=== PATIENT | male | born 1995 | race Caucasian/White ===

== ENCOUNTER 2021-11-21 19:22 | Outpatient (CLI) | payer OTHER | END 2021-11-21 23:59 | disposition critical access hospital (66) | LOC: EMS 19:22 | DX: S89.92XA Unspecified injury of left lower leg, initial encounter (principal); W01.0XXA Fall on same level from slipping, tripping and stumbling without subsequent striking against object, initial encounter; Y92.000 Kitchen of unspecified non-institutional (private) residence as the place of occurrence of the external cause | CPT/HCPCS: A0425; A0427 ==

== ENCOUNTER 2021-11-21 19:45 | Emergency (ER) | payer OTHER ==
[2021-11-21] MEDS ORDERED: HYDROmorphone 1 MG/ML CARPUJECT IVP STA (19:47)
[2021-11-21] MEDS ORDERED: MIDAZOLAM 2 MG/2 ML VIAL IVP STA (19:59)
[2021-11-21] MEDS ORDERED: MIDAZOLAM 2 MG/2 ML VIAL ONE (20:03)
--- NOTE | 2021-11-21 20:45 | ED Physician Documentation ---
PD HPI LOWER EXT INJURY - Stated complaint Stated Complaint: LEFT LEG/KNEE DISLOCATION - Chief complaint Chief Complaint: Trauma Ext - History obtained from History obtained from: Patient, EMS - History of Present Illness PD HPI LOW EXT INJURY LOCATION: Left, Knee Where injury occurred: Home Pain level max: 10 Pain level now: 10 Worsened by: Moving Associated symptoms: No: Weakness, Numbness, Tingling, Swelling Contributing factors: No: Anticoagulated Recently seen: Not recently seen - Additional information Additional information: Patient is a 26-year-old male who presents to the emergency department with left knee pain after a slip in his kitchen today. Complains of a left patellar dislocation. Brought in by EMS. Fentanyl given en route. Worse with movement, nothing makes it better. Review of Systems Constitutional: denies: Fever, Chills Respiratory: denies: Cough GI: denies: Vomiting, Diarrhea Skin: denies: Rash Musculoskeletal: denies: Neck pain, Back pain Neurologic: denies: Headache PD PAST MEDICAL HISTORY - Past Medical History Past Medical History: No Cardiovascular: None Respiratory: None Neuro: None Endocrine/Autoimmune: None GI: None : None HEENT: None Psych: None Musculoskeletal: None Derm: None - Past Surgical History Past Surgical History: Yes General: Appendectomy - Present Medications Home Medications: Ambulatory Orders Medication Instructions Recorded Confirmed No Known Home Medications 11/21/21 11/21/21 - Allergies Allergies/Adverse Reactions: Allergies Allergy/AdvReac Type Severity Reaction Status Date / Time No Known Drug Allergies Allergy Verified 11/21/21 19:48 - Social History Does the pt smoke?: Yes Smoking Status: Current every day smoker Does the pt drink ETOH?: Yes Does the pt have substance abuse?: No - Immunizations Immunizations are current?: Yes - POLST Patient has POLST: No PD ED PE NORMAL - Vitals Vital signs reviewed: Yes - General General: Alert and oriented X 3, No acute distress - HEENT HEENT: Moist mucous membranes - Neck Neck: Supple, no meningeal sign - Cardiac Cardiac: RRR - Respiratory Respiratory: No respiratory distress, Clear bilaterally - Derm Derm: Warm and dry - Extremities Extremities: Other (Left knee - Laterally displaced patella. No bony tenderness about the knee. Neurovascular intact.) - Neuro Neuro: Alert and oriented X 3 Results - Vitals Vitals: Vital Signs - 24 hr 11/21/21 11/21/21 11/21/21 19:48 19:50 20:12 Temperature 36.5 C 36.3 C L Heart Rate 96 96 88 Respiratory 22 22 13 Rate Blood Pressure 143/99 H 143/99 H 139/95 H O2 Saturation 100 100 100 Oxygen O2 Source Nasal cannula - Rads (name of study) Left knee x-ray Radiology: Final report received, EMP read contemporaneously, See rad report (No acute bony abnormality) Procedures - Reduction Body part reduced: Left, Patella Fracture or dislocation: Dislocation Anesthesia: Dilaudid Reduction aftercare: Xray confirms reduction, Splint applied, Crutches, Patient tolerated well PD MEDICAL DECISION MAKING - ED course Complexity details: reviewed results, re-evaluated patient, considered differential, d/w patient ED course: 26-year-old male with a left patellar dislocation. This is reduced. Tolerated well. No complications. X-ray does not show any acute abnormalities. Placed in a locked articulating knee brace for comfort. Given crutches. He will follow-up with orthopedics for further care. Discussed the case with orthopedics on-call, Dr. Tolentino who recommends splint and follow-up in clinic. Patient counseled regarding signs and symptoms for which I believe and urgent re-evaluation would be necessary. Patient with good understanding of and agreement to plan and is comfortable going home at this time This document was made in part using voice recognition software. While efforts are made to proofread this document, sound alike and grammatical errors may occur. Departure - Departure Disposition: 01 Home, Self Care Clinical Impression: Patellar dislocation Qualifiers: Encounter type: initial encounter Laterality: left Qualified Code(s): S83.005A - Unspecified dislocation of left patella, initial encounter Condition: Good Instructions: ED Dislocation Patella Follow-Up: [facility] [Provider Group] - Within 1 week Comments: Please follow-up with orthopedics for further care. Stay in the articulating knee brace until released by orthopedics. Return if you worsen. You are to be nonweightbearing until seen by orthopedics.
[2021-11-21 21:10] VITALS: BP 122/80
--- NOTE | 2021-11-21 21:14 | XRAY Report ---
PROCEDURE: Knee 4 View LT INDICATIONS: s/p patellar dislocation/relocation TECHNIQUE: were acquired. COMPARISON: None. FINDINGS: Bones: No fractures or dislocations. No suspicious bony lesions. Soft tissues: No joint effusion. No suspicious soft tissue calcifications. There is a linear metall ic density demonstrated superficial to the lateral distal thigh. IMPRESSION: 1. No fracture or dislocation. Reviewed by: Malachi Eaton MD on 11/21/2021 9:13 PM PDT Approved by: Malachi Eaton MD on 11/21/2021 9:13 PM PDT Station ID: [id number]
== END 2021-11-21 21:31 | disposition home or self-care (01) ==
LOC: ED 19:45
DX: S83.005A Unspecified dislocation of left patella, initial encounter (principal); W01.0XXA Fall on same level from slipping, tripping and stumbling without subsequent striking against object, initial encounter; Y92.000 Kitchen of unspecified non-institutional (private) residence as the place of occurrence of the external cause; F17.200 Nicotine dependence, unspecified, uncomplicated
CPT/HCPCS: 27562; 73564; 96374; 99282; 99284; J1170

== ENCOUNTER 2022-06-18 15:02 | Emergency (ER) | payer OTHER ==
--- NOTE | 2022-06-18 16:30 | ED Physician Documentation ---
PD HPI URI - Stated complaint Stated Complaint: FEVER/NAUSEA - Chief complaint Chief Complaint: General - History obtained from History obtained from: Patient - History of Present Illness Timing - onset: How many days ago (3-4) Timing duration: Days (3-4) Timing details: Abrupt onset, Still present Associated symptoms: Fever, Chills, Nasal congestion, Dry cough Contributing factors: Sick contact (her with similar syptoms for 4-5 days and tested positive for COVID at home.) Similar symptoms before: Has not had sx before Recently seen: Not recently seen Review of Systems Constitutional: reports: Fever, Chills, Myalgias, Fatigue Nose: reports: Congestion Throat: reports: Sore throat Respiratory: reports: Cough GI: reports: Nausea. denies: Vomiting, Diarrhea Skin: denies: Rash Neurologic: reports: Headache. denies: Altered mental status PD PAST MEDICAL HISTORY - Past Medical History Cardiovascular: None Respiratory: None Neuro: None Endocrine/Autoimmune: None GI: None : None HEENT: None Psych: None Musculoskeletal: None Derm: None - Past Surgical History Past Surgical History: Yes General: Appendectomy - Present Medications Home Medications: Ambulatory Orders Medication Instructions Recorded Confirmed Albuterol Sulf [Ventolin Hfa 2 - 3 puffs INH QID #1 each 06/18/22 Inhaler] Benzonatate [Tessalon] 100 mg PO TID PRN #20 cap 06/18/22 Omeprazole 40 mg PO DAILY 06/18/22 06/18/22 Ondansetron Odt [Zofran] 4 mg TL Q6H PRN #10 tablet 06/18/22 - Allergies Allergies/Adverse Reactions: Allergies Allergy/AdvReac Type Severity Reaction Status Date / Time No Known Drug Allergies Allergy Verified 06/18/22 15:15 - Social History Does the pt smoke?: Yes Smoking Status: Current every day smoker Does the pt drink ETOH?: Yes Does the pt have substance abuse?: No - Immunizations Immunizations are current?: Yes - POLST Patient has POLST: No PD ED PE NORMAL - Vitals Vital signs reviewed: Yes - General General: Alert and oriented X 3, Well developed/nourished - HEENT HEENT: Moist mucous membranes, Pharynx benign - Neck Neck: Supple, no meningeal sign, No adenopathy - Cardiac Cardiac: RRR, No murmur - Respiratory Respiratory: Clear bilaterally - Abdomen Abdomen: Soft, Non tender - Derm Derm: Normal color, Warm and dry, No rash - Neuro Neuro: Alert and oriented X 3, No motor deficit, Normal speech Results - Vitals Vitals: Oxygen O2 Source Room air PD MEDICAL DECISION MAKING - ED course Complexity details: considered differential ( with COVID and patient with same symptoms. Home test positive. ), d/w patient Departure - Departure Disposition: Home, Self Care Clinical Impression: COVID-19 Upper respiratory infection Qualifiers: URI type: unspecified URI Qualified Code(s): J06.9 - Acute upper respiratory infection, unspecified Condition: Stable Record reviewed to determine appropriate education?: Yes Follow-Up: [facility] [Provider Group] Prescriptions: Benzonatate [Tessalon] 100 mg PO TID PRN #20 cap PRN Reason: Cough Albuterol Sulf [Ventolin Hfa Inhaler] 2 - 3 puffs INH QID #1 each Ondansetron Odt [Zofran] 4 mg TL Q6H PRN #10 tablet PRN Reason: Nausea / Vomiting Comments: Stay well-hydrated. Tylenol every 4-6 hours if needed for pains or fevers. Use benzonatate/Tessalon if needed for cough. Ondansetron if needed for nausea. Use the albuterol inhaler 2 to 3 puffs 4 times daily for the next several days to week to help with chest tightness and breathing. Paxlovid as directed per the package instructions. I would anticipate improvement over the next several days. Off work I presume 5 days but check with your command if they have a particular protocol. I transmitted your prescriptions to [facility] pharmacy in [place]. Forms: Activity restrictions Discharge Date/Time: 06/18/22 18:06
[2022-06-18] MEDS ORDERED: NIRMATRELVIR/RITONAVIR PREPACK PO STA (17:10)
[2022-06-18] MEDS ORDERED: BENZONATATE 100 MG CAPSULE PO STA (17:10)
[2022-06-18] MEDS ORDERED: ONDANSETRON ODT 4 MG TABLET TL STA (17:10)
[2022-06-18 18:06] VITALS: BP 120/72
== END 2022-06-18 18:06 | disposition home or self-care (01) ==
LOC: ED 15:02
DX: U07.1 COVID-19 (principal); F17.200 Nicotine dependence, unspecified, uncomplicated
CPT/HCPCS: 99283; A9270; J3490; Q0162

== ENCOUNTER 2022-10-07 11:10 | Outpatient (CLI) | payer OTHER ==
[2022-10-07 12:17] VITALS: BP 126/70
--- NOTE | 2022-10-07 12:17 | SLEEP CARE CONSULTATION ---
Information from patient questionnaire entered by Shahbaz Zuñiga. I have reviewed and concur with the information entered by Shahbaz Zuñiga. This document represents the service I personally performed and the decisions made by me, Constantine Menjivar MD, [facility]. History of Present Illness Service Date and Time: 10/07/2022 1110 Reason for Visit: New patient Chief Complaint: reports: Snoring, Observed pauses in breathing, Fatigue, Frequent awakenings at night Date of Onset: 1YR Usual bedtime: 2100 Time it takes to fall asleep: 10-15MIN Snores at night: Yes Observed to quit breathing while asleep: Yes Sleeps alone due to snoring: No Number of times waking at night: 2-4 Reasons for waking at night: reports: Choking, Snoring, Gasping for air, Other (COUGHING) Toss, Turn, or Twitch while sleeping: Yes Recalls having dreams: No Usually gets out of bed at: 0550 Feels refreshed in the morning: No Morning headache: Yes (RESOLVES AFTER COFFEE) Sleepy or fatigued during the day: Yes Ever fallen asleep while driving: No Takes day naps: No Dreams during day naps: No Prior sleep studies: No Additional HPI information: I had the pleasure of seeing Mr. Sung and his today regarding the possibility of him having a sleep disorder. As you know, he is a 26-year-old gentleman who complains of loud snore and observed apneas. He said he recently had an endoscopy and the medical staff witnessed him stop breathing while sedated. At home, his also sees him quit breathing and choking. The patient tells me that he normally goes to bed around 9 pm, and it takes him approximately 10 - 15 minutes to fall asleep. His can still sleep in the same bed. He can recall waking up on the average of 2 - 4 times during the night. Most of the time he wakes up because of his own snoring, choking, and having to gasp for air. There is a lot of tossing and turning in his sleep. No somniloquy (sleep talking) or somnambulism (sleep walking). Generally, there is no recollection of dreams. In the morning he usually gets up out of the bed around 5:50 a.m. not feeling refreshed nor rested. He usually does have a morning headache that goes away after a cup of coffee. During the day he complains of feeling sleepy and fatigued. His score on [place] Sleepiness Scale is 12 out of 24. He never has fallen asleep while driving nor has had any accident due to sleepiness. He usually does not take naps during the day. Upon falling asleep during the day he denies having vivid dreams. He has never had sleep paralysis, experienced cataplexy or symptoms of restless leg syndrome. He denies having impaired concentration during the day. - Parasomnia Symptoms Ever been unable to move upon waking from sleep: No Walks in sleep: No Talks in sleep: No Ever acted out dreams in sleep: No Ever felt weak in the knees when startled or emotional: Yes Bothered by creepy, crawly, restless sensations in legs: No Problems with memory or concentration: No Subjective Initial [place] Sleepiness Scale score: 10 (10/05/22) Past Medical History Past Medical History: reports: Anxiety, Depression, GERD Social History The patient's occupation is a AM. Patient is and lives in [place]. Years of smokin Quit date: 08/2022 Alcohol use: Yes Alcohol amount and frequency: 1 DRINK 2 X WEEK Caffeine use: Yes Caffeine amount and frequency: 1 CUP COFFEE DAILY Family History Family history of sleep disordered breathing: Yes Family Hx Sleep Apnea: Mother: Snoring, Father: Snoring, Grandparent: Snoring Allergies and Home Medications Known drug allergies: No Drug allergies reviewed: Yes Home medication list reviewed: Yes (omeprazole) Allergy and home medication list: Allergies No Known Drug Allergies Allergy (Verified 06/18/22 15:15) Review of Systems Weight gain over past 5 years: 50 Cardiovascular: denies: high blood pressure, palpitations, chest pain, irregular heart rate or pulse, leg or foot swelling, have to sleep sitting up, other Respiratory: denies: shortness of breath, wheeze, sputum production, chronic cough, other Gastrointestinal: reports: heartburn Urinary: denies: incontinence, frequency, urgency, impotence, other Neurological: denies: headaches, seizure, head trauma, disorientation, speech dysfunction, gait or balance problems, fainting or unconsciousness, other Psychiatric: reports: anxiety, depression Ear/Nose/Throat: reports: wisdom teeth removed Endocrine: denies: thyroid disease, history of goiter, sluggishness, too hot or cold, excessive thirst, increased appetite, increased urination, unexplained weakness, other Musculoskeletal: reports: joint pain, back pain Immunologic: reports: allergies to food or environment Physical Exam Vital signs obtained and entered by: SHAHBAZ Vera MA Blood Pressure: 126/70 (LEFT ARM) Cuff size: regular Heart Rate: 91 O2 Saturation: 98 Height: 6 ft 2 in Weight: 231 lb 9.6 oz Body Mass Index: 29.7 BMI Classification: Overweight Neck circumference: 16.5 Mood/affect: Normal HEENT: No craniofacial malformation Nostrils: partially obstructed Turbinates: normal Septum: midline Mouth and throat: narrow oropharynx Soft palate: long Hard palate: normal Uvula: normal Uvula visualization: 50% Mallampati Class II Tongue: enlarged in size with teeth [place] on lateral edges Tonsils: small Chin and jaw: normal size and position Neck: normal w/o lymphadenopathy or thyromegaly Heart: regular rate and rhythm Lungs: clear bilaterally Extremities: no edema or clubbing Neurologic: intact Impression and Plan IMPRESSION: 1. Obstructive Sleep Apnea-Hypopnea Syndrome, as suggested by history of loud and irregular snoring, observed cessation of breath while asleep, frequent awakenings during the night, nocturnal choking, unrefreshed sleep, and daytime hypersomnolence. Narrow oropharynx is a common predisposing factor for obstructive sleep apnea-hypopnea syndrome. I recommend proceeding to polysomnography to confirm the diagnosis and to assess severity. If he has significant sleep disordered breathing, a manual CPAP titration study will also be performed to find the optimal treatment pressure. I informed the patient of what the sleep studies involve and after some discussion, he agreed to proceed. Plan: 1. Schedule an in-laboratory polysomnography and return in 1 to 2 weeks after the study to discuss result and initiate therapy. 2. Avoid long distance driving or when feeling sleepy. 3. Avoid alcohol, sedative and muscle relaxant around bedtime. Counseling Topics: Weight control Follow up with [facility] Care in: 1-2 months Plan: In-lab psg Visit Type: In Office Other Participants: Spouse/Significant Other Time Spent with Patient (minutes): 15 Provider Statement: I spent 100% of the Face to Face Visit with the patient with greater than 50% spent counseling the patient and coordination of care.
== END 2022-10-07 11:11 | disposition home or self-care (01) ==
LOC: SC 11:10
PROVIDERS: ATTEND Internal Medicine Pulmonary Disease
DX: R06.83 Snoring (principal); R06.81 Apnea, not elsewhere classified; G47.8 Other sleep disorders; G47.10 Hypersomnia, unspecified
CPT/HCPCS: 99202; 99212

== ENCOUNTER 2022-11-18 20:29 | Outpatient (CLI) | payer OTHER | END 2022-11-18 20:30 | disposition home or self-care (01) | LOC: SC 20:29 | PROVIDERS: ATTEND Internal Medicine Pulmonary Disease | DX: R06.83 Snoring (principal); G47.8 Other sleep disorders; R06.81 Apnea, not elsewhere classified; R51.9 Headache, unspecified; G47.10 Hypersomnia, unspecified; E66.3 Overweight; Z68.29 Body mass index [BMI] 29.0-29.9, adult | CPT/HCPCS: 95810 ==

== ENCOUNTER 2022-11-20 13:48 | Outpatient (CLI) | payer OTHER ==
[2022-11-20 14:15] VITALS: BP 130/70
--- NOTE | 2022-11-20 14:15 | SLEEP CARE CONSULTATION ---
Information from patient questionnaire entered by Zoey Zuñiga. I have reviewed and concur with the information entered by Zoey Zuñiga. This document represents the service I personally performed and the decisions made by , Mireya Tsang ARNP. History of Present Illness Service Date and Time: 11/20/2022 1348 Accompanied by: Spouse Initial [place] Sleepiness Scale score: 10 (10/05/22) Current [place] Sleepiness Scale score: 12 (11/20/22) Additional HPI information: MICHAEL ROBERTSON returns with spouse for follow up and results of the recently performed polysomnography. The patient was informed of the following findings: No significant sleep disordered breathing with an average AHI of 2.1 and shahab oxygen saturation of 90%. His supine AHI is 5.5. I explained the pathophysiology behind obstructive sleep apnea. Patient does not have sleep apnea and was advised how weight gain could increase the risk of developing sleep apnea in the future. I strongly encouraged the patient to lose weight. Patient does not have significant sleep disordered breathing but has elevated AHI in supine position so advised positional therapy. Methods to achieve positional management therapy were discussed; such as, positioning with pillows, wearing a T-shirt with tennis balls sewn into the back, or commercially available products. Patient has light snoring. Snoring can be reduced by weight loss. Weight loss is best achieved with diet consult. Patient instructed to contact PCP for referral. Snoring can also be treated with an oral appliance from a dentist. Advised to check insurance coverage. In addition, an ENT evaluation can be do to see if other treatment is indicated. Patient counseled not drink alcohol less than 4 hours before bedtime as it can increase snoring and apnea. Patient was cautioned about risks of drowsy driving until sleepiness symptoms resolve. Patient denies drowsy driving. Sleep Study - Results Type of Sleep Study: Polysomnography (COMPLETED 11/18/22) Prior sleep studies: No Polysomnography/Home Sleep Study results: IMPRESSION: The quality of the study is good. The patient had minimally reduced sleep efficiency. The sleep architecture was abnormal for mild sleep fragmentation and reduced amount of time spent in slow wave sleep (N3). Respiratory monitoring showed no significant sleep disordered breathing (AHI = 2.1) or hypoxia (shahab oxygen saturation of 90%). The few respiratory events occurred almost exclusively during supine sleep (supine AHI = 5.5; non-supine = 0.89). Snore was infrequent and light in intensity. There was no significant periodic leg movement of sleep. Cardiac rhythm was normal sinus rhythm without significant arrhythmia. No abnormal behavior (parasomnia) observed during the night. Allergies and Home Medications Known drug allergies: No Drug allergies reviewed: Yes Home medication list reviewed: Yes (Omeprazole 40 mg) Allergy and home medication list: Allergies No Known Drug Allergies Allergy (Verified 11/20/22 12:45) Physical Exam Vital signs obtained and entered by: ZOEY Vera MA Blood Pressure: 130/70 (LEFT ARM) Cuff size: regular Heart Rate: 98 O2 Saturation: 96 Height: 6 ft 2 in Weight: 231 lb 12.8 oz Body Mass Index: 29.7 BMI Classification: Overweight Impression and Plan 1. Suspected Obstructive Sleep Apnea-Hypopnea Syndrome, as suggested by a history of loud and irregular snoring, observed cessation of breath while aslee p, gasping or choking in sleep, frequent awakening during the night, unrefreshed sleep, and excessive daytime sleepiness. Patient has an elevated supine AHI and he did not feel night in the sleep lab was good representation of a night sleep for him. I recommend proceeding to HST in his home environment to confirm the diagnosis and to assess severity. I obtained agreement from patient to proceed. The pathophysiology of obstructive sleep apnea-hypopnea syndrome was discussed with the patient and health risks of cardiovascular and cerebrovascular disease if not treated. Risks of drowsy driving discussed in detail and patient advised to avoid long distance driving and to sinker puller at the first sign of drowsiness. Patient agreed to plan. * Schedule polysomnography/HST * Avoid long distance driving or driving when feeling sleepy. * Avoid alcohol, sedative and muscle relaxant around bedtime. * Attempt to lose weight. * Review instructions provided by trained office staff on how to prepare for the sleep study. * Return for follow-up after sleep study completed. Counseling Topics: Weight loss health impact Visit Type: In Office Time Spent with Patient (minutes): 20 Provider Statement: I spent 100% of the Face to Face Visit with the patient with greater than 50% spent counseling the patient and coordination of care.
== END 2022-11-20 13:49 | disposition home or self-care (01) ==
LOC: SC 13:48
PROVIDERS: ATTEND Nurse Practitioner Family
DX: R06.83 Snoring (principal); G47.8 Other sleep disorders; R06.81 Apnea, not elsewhere classified; G47.10 Hypersomnia, unspecified; E66.3 Overweight; Z68.29 Body mass index [BMI] 29.0-29.9, adult
CPT/HCPCS: 99212; 99213

== ENCOUNTER 2023-01-08 09:30 | Outpatient (CLI) | payer OTHER | END 2023-01-08 09:31 | disposition home or self-care (01) | LOC: SC 09:30 | PROVIDERS: ATTEND Nurse Practitioner Family | DX: R06.83 Snoring (principal); G47.8 Other sleep disorders; R06.81 Apnea, not elsewhere classified; G47.10 Hypersomnia, unspecified; F32.A Depression, unspecified | CPT/HCPCS: 95806 ==

== ENCOUNTER 2023-01-15 15:26 | Outpatient (CLI) | payer OTHER ==
--- NOTE | 2023-01-15 15:55 | SLEEP CARE CONSULTATION ---
Information from patient questionnaire entered by Zoey Zuñiga. I have reviewed and concur with the information entered by Zoey Zuñiga. This document represents the service I personally performed and the decisions made by , Mireya Tsang ARNP. History of Present Illness Service Date and Time: 01/15/2023 152 Initial [place] Sleepiness Scale score: 10 (10/05/22) Current [place] Sleepiness Scale score: 13 (01/15/23) Additional HPI information: MICHAEL ROBERTSON returns for follow up and results of the recently performed home sleep study. The patient was informed of the following findings: No significant sleep disordered breathing with an average AHI of 4.3 and shahab oxygen saturation of 89%. Supine AHI was elevated at 10.9 I explained the pathophysiology behind obstructive sleep apnea. Patient does not have sleep apnea and was advised how weight gain could increase the risk of developing sleep apnea in the future. I strongly encouraged the patient to lose weight. Patient does not have significant sleep disordered breathing but has elevated AHI in supine position so advised positional therapy. Methods to achieve positional management therapy were discussed; such as, positioning with pillows, wearing a T-shirt with tennis balls sewn into the back or commercially available products. Patient has light snoring. Snoring can be reduced by weight loss. Weight loss is best achieved with diet consult. Patient instructed to contact PCP for referral. Snoring can also be treated with an oral appliance from a dentist. Advised to check insurance coverage. In addition, an ENT evaluation can be do to see if other treatment is indicated. Patient counseled not drink alcohol less than 4 hours before bedtime as it can increase snoring and apnea. Patient was cautioned about risks of drowsy driving until sleepiness symptoms resolve. Sleep Study - Results Type of Sleep Study: Home sleep study (COMPLETED 01/08/23) Prior sleep studies: No Polysomnography/Home Sleep Study results: Physician Impression: The quality of the study is good. The length of the study is adequate (> 240 m inutes). Please also see the tabulated and graphic data. 1. No significant sleep disordered breathing, with an AHI of 4.3/hr and shahab SaO2 of 89%. During the study, the patient had 6 apneas (6 obstructive, 0 central, 0 mixed) and 33 hypopneas. The longest episode lasted 110.5 seconds. The few respiratory events occurred almost exclusively during supine sleep (supine AHI was 10.9 and non-supine, 0.84). Allergies and Home Medications Known drug allergies: No Drug allergies reviewed: Yes Home medication list reviewed: Yes (no changes) Allergy and home medication list: Allergies No Known Drug Allergies Allergy (Verified 01/14/23 14:58) Review of Systems Review of systems same as previous: Yes (no changes) Physical Exam Vital signs obtained and entered by: ZOEY Vera MA Blood Pressure: 122/70 (LEFT ARM) Cuff size: regular Heart Rate: 83 O2 Saturation: 99 Height: 6 ft 2 in Weight: 235 lb Body Mass Index: 30.2 BMI Classification: Obese Impression and Plan Snoring but no significant sleep disordered breathing. However, because patient has an elevated supine AHI he is advised to avoid supine sleep. Patient advised that often weight loss will reduce snoring as well as apnea risk. An oral appliance can also be used for snoring. This would require a dental consultation. Patient cautioned not to use other online appliances as can cause bite issues. A list of accredited dentists in [facility] and one local dentist who makes oral appliances is available in office as needed. Patient is advised to check if insurance will cover. An ENT consult can also be helpful to determine if any other treatment is an option. * Avoid supine sleep * Attempt to lose weight * Avoid alcohol consumption near bedtime * The patient is cautioned about driving until sleepiness is completely resolved. * Return as needed for follow up. Counseling Topics: Sleeping position, Weight loss health impact Visit Type: In Office Time Spent with Patient (minutes): 10 Provider Statement: I spent 100% of the Face to Face Visit with the patient with greater than 50% spent counseling the patient and coordination of care.
[2023-01-15 15:56] VITALS: BP 122/70
== END 2023-01-15 15:27 | disposition home or self-care (01) ==
LOC: SC 15:26
PROVIDERS: ATTEND Nurse Practitioner Family
DX: R06.83 Snoring (principal); E66.9 Obesity, unspecified; Z68.30 Body mass index [BMI] 30.0-30.9, adult
CPT/HCPCS: 99212

== ENCOUNTER 2023-09-11 08:00 | Outpatient (CLI) | payer OTHER ==
[2023-09-11 21:24] LABS: INFLUENZA A- RESP PCR PANEL NOT DETECTED; INFLUENZA B - RESP PCR PANEL NOT DETECTED; RSV- RESP PCR PANEL NOT DETECTED; SARS-CoV-2 -RESP PCR PANEL NOT DETECTED
== END 2023-09-11 23:59 | disposition home or self-care (01) ==
LOC: LAB.N 08:00
PROVIDERS: ATTEND Family Medicine
DX: J06.9 Acute upper respiratory infection, unspecified (principal)
CPT/HCPCS: 87637